=== PATIENT | male | born 1955 | race Caucasian/White ===

== ENCOUNTER 2017-04-08 08:23 | Outpatient (RCR) | payer MEDICARE ==
[2017-04-07 09:33] VITALS: BP 140/96
[2017-04-07 10:09] LABS: PLATELET COUNT, AUTOMATED 48 K/uL (150-450)
[~2017-04-08 08:23] MED LIST: CYAN1TAB68 PO; DIA5 PO; LORA-1455 PO
[2017-04-08 08:29] VITALS: BP 132/85
--- NOTE | 2017-04-08 17:39 | ONCOLOGY FOLLOW UP NOTE ---
EVENT DATE: April 08, 2017 DIAGNOSES 1. 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 2. Idiopathic thrombocytopenic purpura. 3. Crohn disease. CHIEF COMPLAINT The patient is here today for followup of his squamous cell carcinoma of the oropharynx and thrombocytopenia. ONCOLOGY HISTORY The patient is a 61-year-old male, presentation lesion of the left tonsil with extension into the base of the tongue and the introitus of the piriform sinus. PROCEDURE Biopsy of the mass was done, and it came back positive for squamous cell carcinoma, invasive, grade 3/4, with high-risk HBV positivity. STAGING WORK UP 1. CT scan of the head and neck done on 07/18/2012 showed a mass arising from the left tonsillar region just under 4 cm, extending anteriorly in the base of the tongue towards the floor of the mouth. There were no enlarged lymph nodes on the study. 2. PET CT scan done on 07/22/2012 showed increased uptake in the oral cavity on the left side with a mass of 3.3 x 3.3 cm with SUV of 14.91. TREATMENT Patient received chemoradiation. He received a full dose of cisplatinum in combination with radiation therapy. He received 2 cycles of full-dose cisplatinum between 08/23/2012 through 09/27/2012. Patient achieved a complete remission by a PET scan done in 01/2013. HISTORY OF PRESENT ILLNESS Patient is here today for followup of his squamous cell carcinoma of the oropharynx and thrombocytopenia. He is doing fine currently and he is totally asymptomatic and feeling very well himself. He denies any bleeding or easy bruising. PAST MEDICAL HISTORY 1. Oropharyngeal cancer involving the left tonsil and the base of the tongue status post chemoradiation in remission. 2. ITP. 3. Crohn disease. PAST SURGICAL HISTORY 1. Colon surgery for diverticulitis. 2. Upper GI endoscopy on 07/21/2012. 3. Port placement on 08/22/2012. SOCIAL HISTORY Patient quit smoking about 2 years ago. He quit using smokeless tobacco. He drinks alcohol, but denies any abuse of illicit drugs. FAMILY HISTORY Cancer in his father and mother, diabetes in his father, heart disease in the father, hyperlipidemia in the father, hypertension in the brother, father and mother. CURRENT MEDICATIONS None. ALLERGIES No known drug allergies. REVIEW OF SYSTEMS CONSTITUTIONAL: No appetite or weight change. No fever, chills or sweating. No recent infection. HEENT: Ears: No tinnitus or hearing problem. Nose: No nasal discharge or epistaxis. Throat: No sore throat or mouth ulcers. Eyes: No diplopia or visual changes. RESPIRATORY: No shortness of breath. No cough, expectoration or hemoptysis. CARDIOVASCULAR: No chest pain, orthopnea, or paroxysmal nocturnal dyspnea (PND) . No edema. No palpitations. GASTROINTESTINAL: No nausea or vomiting. No diarrhea or constipation. No change in bowel movements. No heartburn or swallowing difficulties. No abdominal pain. No jaundice. No hematemesis, melena or rectal bleeding. GENITOURINARY: Patient has rectal bleeding recently and is scheduled for colonoscopy next week. MUSCULOSKELETAL: No pain in the muscles, joints or bones. NEUROLOGICAL: He has numbness in the fingertips. HEMATOLOGIC/LYMPHATIC: He bruises easily. SKIN: No skin rash or lumps. PSYCHIATRIC: No anxiety or depression. PHYSICAL EXAMINATION GENERAL: Looks stable. Well-developed, well-nourished, and in no acute distress. VITAL SIGNS: Blood pressure 132/85, pulse 85 per minute, respirations 16 per minute, temperature 97.3, pulse ox 97% on room air. HEENT: Head: Atraumatic. No sinus tenderness to palpation. Eyes: No icterus or conjunctivitis. Mouth and throat: No oral thrush or mucositis. NECK: Supple. No cervical or supraclavicular lymphadenopathy. LUNGS: Clear to auscultation and percussion bilaterally. HEART: Regular rate and rhythm. No gallops, murmurs, clicks or rubs. ABDOMEN: Soft and lax. No tenderness. No hepatosplenomegaly. No masses. EXTREMITIES: No cyanosis, clubbing or edema. LYMPHATICS: No peripheral lymphadenopathy. NEUROLOGICAL: Conscious, alert and oriented times three. No focal motor or sensory deficits. PSYCHIATRIC: Mood and affect appear normal. SKIN: No skin rash, bruise or purpuric eruption. DIAGNOSTIC DATA CBC showed a white count of 7.1, hemoglobin 15.4, hematocrit 44.4, platelets 48, 000. Chem panel is totally normal, except AST 41. ASSESSMENT 1. Invasive squamous cell carcinoma grade 3/4 of the left oropharynx (T3) lesion without lymph node involvement status post chemoradiation given between August 22, 2012 through September 27, 2012. During treatment patient received two cycles of cisplatin full dose. Repeat PET scan after chemoradiation in January 2013 revealed achievement of complete remission. Patient currently in complete remission. I am planning to continue followup. I will see him again in four months with CBC and chem panel. Patient was advised to see his ENT surgeon, and he asked for referral to Dr. Vargas here in [place], and we will proceed with that. 2. Thrombocytopenia due to ITP. Current platelet count is 48,000. Patient denies any bleeding or easy bruising. We will continue to monitor. Patient was advised to avoid trauma and to avoid aspirin or nonsteroidal antiinflammatory drugs. He was advised also to report any bleeding. 3. Crohn's disease. Patient is followed by his refrigerator tester. PLAN 1. Continue followup. 2. Referral to Dr. Vargas. 3. Patient to return in four months with CBC, chem panel. 3. Patient is to contact us for any new concerns or complaints. FADUMO
== END 2017-05-12 14:29 | disposition home or self-care (01) ==
LOC: ONC 08:23
PROVIDERS: ATTEND Internal Medicine Hematology
DX: Z85.818 Personal history of malignant neoplasm of other sites of lip, oral cavity, and pharynx (principal); Z92.3 Personal history of irradiation; Z92.21 Personal history of antineoplastic chemotherapy; D69.6 Thrombocytopenia, unspecified; K50.90 Crohn's disease, unspecified, without complications; Z87.891 Personal history of nicotine dependence
CPT/HCPCS: 36415; 85025; G0463; 82040; 82247; 82310; 82374; 82435; 82565; 82947; 84075; 84132; 84155; 84295; 84450; 84460; 84520; 99212

== ENCOUNTER 2017-08-06 08:30 | Outpatient (RCR) | payer MEDICARE ==
[2017-08-05 08:42] LABS: PLATELET COUNT, AUTOMATED 56 K/uL (150-450)
[2017-08-06 08:41] VITALS: BP 123/83
--- NOTE | 2017-08-06 13:10 | Oncology Note ---
EVALUATION~DATE~& TIME: 08/06/17 at 08:48 PRIMARY CARE PHYSICIAN: None LAST SEEN BY DR. Fernandez 03/2017 ACCOMPANIED BY: Self Chief complaint: Surveillance of his squamous cell carcinoma of the oropharynx and thrombocytopenia. DIAGNOSIS : Squamous cell carcinoma of the oropharynx and ITP. Oncology History 2012 T3 SCC of left tonsil [place] [address] Santiago. Patient received chemoradiation. He received a full dose of cisplatinum in combination with radiation therapy. 08/23/2012 through 09/27/2012. He received 2 cycles of full-dose cisplatinum between 01/2013. His repeat PET CT scan after chemoradiation done in 01/2013 showed complete remission 10/2013 Patient has been treated with IVIG in the past, last dose was approximately in August 2013. Options like IVIG, splenectomy, or Nplate were discussed with the patient By Dr. Fernandez in the past. 05/12/17 flexible laryngoscopy by HARRY CARPIO JR, MD>: right nasal cavity anesthetized with afrin and lidocaine. right nasal cavity, nasopharynx, oropharynx, hypopharynx, larynx clear. Treatment Patient received chemoradiation. He received 2 cycles of full dose of cisplatinum in combination with radiation therapy. Patient has been treated with IVIG in the past for ITP HPI Mr. Chris Durham is is a 62-year-old male, who has T3 Squamous cell carcinoma of the oropharynx (dx in 2012) and ITP. for which He received a full dose of cisplatinum in combination with radiation therapy. patient PET since 2012 show complete remission. SCC oropharynx presented as a lesion of the left tonsil with extension into the base of the tongue and the introitus of the piriform sinus. Patient is here today for surveillance follow up. e reports being in his usual state of health. besides a bruise that he had 2 months ago, but it dissolved on its own, he denies any bruising, bleeding. No change in bowel and bladder pattern.Denies cardiac related chest pain, no abdominal pain, no SOB. 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 And keeps active by camping frequently, and he exercises 3-4 times per week. Patient has chronic ITP, and elevated LFTs. he informs me that he has been drinking at least half a dozen of vodka and cranberry juice last Wednesday. He reports no flare ups on Crohn disease. Living conditions: Patient lives by himself , but he informs me that he has support of family friends and a good relationship with his four children. Diagnostic tests & Reports Reviewed on [facility] PAST MEDICAL/SURGICAL HISTORY 1. Oropharyngeal cancer involving the left tonsil and the base of the tongue status post chemoradiation in remission. 2. ITP. 3. Crohn disease. PAST SURGICAL HISTORY 1. Colon surgery for diverticulitis. 2. Upper GI endoscopy on 07/21/2012. 3. Port placement on 08/22/2012. FAMILY~HISTORY: Cancer in his father and mother, diabetes in his father, heart disease in the father, hyperlipidemia in the father, hypertension in the brother, father and mother. Psychosocial History Patient quit smoking about 2 years ago. He quit using smokeless tobacco. He drinks alcohol, but denies any abuse of illicit drugs. Reported Medications Tylenol for aches and sores OTC PRN SOCIAL /OCCUPATION HISTORY: he used to work as a salesman PREVENTIVE: MEDICATIONS: None ALLERGIES: NKDA REVIEW OF SYSTEMS CONSTITUTION: denies fevers, sweats, change in appetite, energy, or weight EYES: No blurred vision, no double vision ENT: no mouth soreness, trouble swallowing, neck masses RESPIRATORY: Denies pleuritic pain, no dyspnea, wheezing, coughing, or hemoptysis CARDIOVASCULAR: Denies cardiac type chest pain, palpitations, or paroxysmal nocturnal dyspnea (PND), nor leg edema GI: denies trouble swallowing, indigestion, abdominal pain, diarrhea, constipation, : No blood in the urine, no urinary urgency/frequency, no dysuria, no MUSCULOSKELETAL: no joint pain, no muscle pain, no limited ROM, no back pain NEURO: denies headaches, dizziness, neuropathy, focal weakness SKIN: denies bruising, rashes, changing or suspicious lesions, HEMATOLOGY: denies spontaneous bleeding, denies non-palpable nodes, +He bruises easily PSYCH: denies mood changes, depression, anxiety PHYSICAL EXAM Vital Signs Temperature: 97.2 Pulse: 95 BP Systolic: 123 BP Diastolic: 83 Respiratory Rate: 16 O2 SAT: 95% RA O2 Delivery: Height (inches) Weight lb: Weight oz: Weight Kg (Carroll): Pain: 0 PERFORMANCE STATUS: ECOG O- fully active, able to carry on all pre-disease performance w/o restriction GENERAL: pleasant conversant, in no apparent distress ORAL: mucosa moist without lesions, pharynx not injected EYES: no icterus, no pale conjunctivae, EOMI, PERRLA NECK: supple, no masses, no palpable lymph nodes LUNGS: clear to auscultation bilaterally, breathing, non-labored CVS: regular rate, rhythm, nl s1, s2, no murmurs ABD: normal bowel sounds, soft non tender, non-distended, no hepatomegaly, no splenomegaly, no masses EXTREMITIES: no edema, no cyanosis MUSCULOSKELETAL: grossly normal gait, range of motion stable NEURO: alert, appropriate, motor grossly normal, sensory grossly non focal, and cranial nerves grossly intact NODES: no cervical, supraclavicular, axillary, inguinal adenopathy SKIN: no ecchymosis, petechiae, no open wounds, no itchiness, no bruises or skin rashes PSYCH: normal mood and affect, good judgment and insight. Assessment & Plan Mr. Chris aguilar is a 62-year-old male, who has T3 Squamous cell carcinoma of the oropharynx (dx in 2012) and ITP. for which He received a full dose of cisplatinum in combination with radiation therapy. patient PET since 2012 show complete remission. DIAGNOSTIC DATA 08/06/17 CBC showed a white count of 6.0, hemoglobin 16.7, hematocrit 47.5, platelets 56, 000. Chem panel is totally normal, except AST 215; ALT 184. ASSESSMENT 1. Invasive squamous cell carcinoma grade 3/4 of the left oropharynx (T3) lesion without lymph node involvement status post chemoradiation given between August 22, 2012 through September 27, 2012. During treatment patient received two cycles of cisplatin full dose. Repeat PET scan after chemoradiation in January 2013 revealed achievement of complete remission. Patient currently in complete remission. I am planning to continue followup. I will see him again in four months with CBC and chem panel. Patient was advised to see his ENT surgeon, and he asked for referral to Dr. Carpio here in [place], and we will proceed with that. 2. Thrombocytopenia due to ITP. Bone marrow biopsy did not show any significant pathology or increased megakaryocytes, but idiopathic thrombocytopenic purpura is favored. Current platelet count is 56,000. Patient denies any bleeding. We will continue to monitor. Patient was advised to avoid trauma and to avoid aspirin , nonsteroidal antiinflammatory, alcohol. 3. ETOH/drug induced liver injury AST 215; ALT 184. patient educated and rationale provided on the effects of ETOH , he was encouraged to refrain from alcohol ingestion. He agrees with the plan. 4. Crohn's disease. Well controlled Patient is followed by his offal separator. PLAN - Check EBV titer trending, thyroid function today. Will notify patient if any pertinent findings. 1. Continue close monitoring of LFTs number. 2. Patient to f/u with MD/RAYSHAWN after visit with ENT Dr. Carpio. per patient his ENT apt is due in 11/05/17 3. Patient to return in three months with CBC, chem panel. 4.Patient instructed to call Clinic to report any bleeding Immediately. 5. Patient is to contact us for any new concerns or complaints. TIME SPENT: 25 minutes >20 minutes includes but not limited to discussion, counselling and co-ordination~ of care. Discussion with other health care providers, record review, review of lab work, diagnostic tests. Plan discussed extensively with patient. All the questions answered today. Thank you for the opportunity to be involved in the care of Mr. Perez Billing Level: Return visit 4 ALEXIS JOHNSON, ONC Aug 06, 2017 09:06
== END 2017-08-09 13:53 | disposition home or self-care (01) ==
LOC: ONC 08:30
PROVIDERS: ATTEND Internal Medicine Hematology
DX: Z85.818 Personal history of malignant neoplasm of other sites of lip, oral cavity, and pharynx (principal); Z92.3 Personal history of irradiation; Z92.21 Personal history of antineoplastic chemotherapy; D69.6 Thrombocytopenia, unspecified; K50.90 Crohn's disease, unspecified, without complications; Z87.891 Personal history of nicotine dependence
CPT/HCPCS: 36415; 82040; 82247; 82310; 82374; 82435; 82565; 82947; 84075; 84132; 84155; 84295; 84443; 84450; 84460; 84520; 85025; 86663; 86664; 86665

== ENCOUNTER → 2017-11-24 | Outpatient (CLI) | payer MEDICARE ==
--- NOTE | 2017-11-24 10:57 | EKG ---
FACILITY: [facility] - [place] PATIENT NAME: DANILO CHOW : [id number] MR: [id number] V: [id number] EXAM DATE: ORDERING PHYSICIAN: DELILAH FAJARDO TECHNOLOGIST: JUVENTINO Test Reason : JAW NUMBNESS Blood Pressure : / mmHG Vent. Rate : 085 BPM Atrial Rate : 085 BPM P-R Int : 176 ms QRS Dur : 090 ms QT Int : 384 ms P-R-T Axes : 073 075 073 degrees QTc Int : 456 ms Normal sinus rhythm Normal ECG No previous ECGs available Referred By: TANA Confirmed By:
== END ==
LOC: LAB 09:15 → RESP 09:15
PROVIDERS: ATTEND Internal Medicine
DX: Z02.9 Encounter for administrative examinations, unspecified (principal)

== ENCOUNTER 2017-12-02 15:17 | Outpatient (RCR) | payer MEDICARE ==
[2017-12-01 13:17] VITALS: BP 122/89
[2017-12-01 13:30] LABS: PLATELET COUNT, AUTOMATED 73 K/uL (150-450)
[2017-12-02 15:28] VITALS: BP 154/77
--- NOTE | 2017-12-03 10:36 | [facility] ONCOLOGY NOTE ---
EVENT DATE: December 02, 2017 DIAGNOSES 1. 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 2. Idiopathic thrombocytopenic purpura. 3. Crohn disease. CHIEF COMPLAINT The patient is here today for followup of his squamous cell carcinoma of the oropharynx and thrombocytopenia. ONCOLOGY HISTORY The patient is a 62-year-old male, presentation lesion of the left tonsil with extension into the base of the tongue and the introitus of the piriform sinus. PROCEDURE Biopsy of the mass was done, and it came back positive for squamous cell carcinoma, invasive, grade 3/4, with high-risk HBV positivity. STAGING WORK UP 1. CT scan of the head and neck done on 07/18/2012 showed a mass arising from the left tonsillar region just under 4 cm, extending anteriorly in the base of the tongue towards the floor of the mouth. There were no enlarged lymph nodes on the study. 2. PET CT scan done on 07/22/2012 showed increased uptake in the oral cavity on the left side with a mass of 3.3 x 3.3 cm with SUV of 14.91. TREATMENT Patient received chemoradiation. He received a full dose of cisplatinum in combination with radiation therapy. He received 2 cycles of full-dose cisplatinum between 08/23/2012 through 09/27/2012. Patient achieved a complete remission by a PET scan done in 01/2013. HISTORY OF PRESENT ILLNESS Patient is here today for followup of his squamous cell carcinoma of the oropharynx and thrombocytopenia. He is doing fine currently. He has been seen by Dr. Kwadwo Vargas, the ENT doctor, and his exam was without any abnormality. He has some tingling and numbness in his fingers but other than that he is doing very well. PAST MEDICAL HISTORY 1. Oropharyngeal cancer involving the left tonsil and the base of the tongue status post chemoradiation in remission. 2. ITP. 3. Crohn disease. PAST SURGICAL HISTORY 1. Colon surgery for diverticulitis. 2. Upper GI endoscopy on 07/21/2012. 3. Port placement on 08/22/2012. SOCIAL HISTORY Patient quit smoking about 2 years ago. He quit using smokeless tobacco. He drinks alcohol, but denies any abuse of illicit drugs. FAMILY HISTORY Cancer in his father and mother, diabetes in his father, heart disease in the father, hyperlipidemia in the father, hypertension in the brother, father and mother. CURRENT MEDICATIONS None. ALLERGIES No known drug allergies. REVIEW OF SYSTEMS CONSTITUTIONAL: No appetite or weight change. No fever, chills or sweating. No recent infection. HEENT: Ears: No tinnitus or hearing problem. Nose: No nasal discharge or epistaxis. Throat: No sore throat or mouth ulcers. Eyes: No diplopia or visual changes. RESPIRATORY: No shortness of breath. No cough, expectoration or hemoptysis. CARDIOVASCULAR: No chest pain, orthopnea, or paroxysmal nocturnal dyspnea (PND). No edema. No palpitations. GASTROINTESTINAL: No nausea or vomiting. No diarrhea or constipation. No change in bowel movements. No heartburn or swallowing difficulties. No abdominal pain. No jaundice. No hematemesis, melena or rectal bleeding. GENITOURINARY: Patient has rectal bleeding recently and is scheduled for colonoscopy next week. MUSCULOSKELETAL: No pain in the muscles, joints or bones. NEUROLOGICAL: He has tingling and numbness in his fingers. HEMATOLOGIC/LYMPHATIC: He bruises easily. SKIN: No skin rash or lumps. PSYCHIATRIC: No anxiety or depression. PHYSICAL EXAMINATION GENERAL: Looks stable. Well-developed, well-nourished, and in no acute distress. VITAL SIGNS: Blood pressure 152/77, pulse 102 per minute, respirations 16 per minute, temperature 97.6, pulse ox 94% on room air. HEENT: Head: Atraumatic. No sinus tenderness to palpation. Eyes: No icterus or conjunctivitis. Mouth and throat: No oral thrush or mucositis. NECK: Supple. No cervical or supraclavicular lymphadenopathy. LUNGS: Clear to auscultation and percussion bilaterally. HEART: Regular rate and rhythm. No gallops, murmurs, clicks or rubs. ABDOMEN: Soft and lax. No tenderness. No hepatosplenomegaly. No masses. EXTREMITIES: No cyanosis, clubbing or edema. LYMPHATICS: No peripheral lymphadenopathy. NEUROLOGICAL: Conscious, alert and oriented times three. No focal motor or sensory deficits. PSYCHIATRIC: Mood and affect appear normal. SKIN: No skin rash, bruise or purpuric eruption. DIAGNOSTIC DATA CBC showed a white count of 7.1, hemoglobin 16.4, hematocrit 47.7, platelets 73,000. Chem panel is totally normal. ASSESSMENT 1. Invasive squamous cell carcinoma grade 3/4 of the left oropharynx (T3) lesion without lymph node involvement status post chemoradiation given between August 22, 2012 through September 27, 2012. During treatment, patient received two cycles of cisplatin full dose. Repeat PET scan after chemoradiation in January 2013 revealed achievement of complete remission. Patient currently in complete remission. He has been seen by Dr. Kwadwo Vargas, our ENT here in [place], and his exam was normal. I am planning to see him again in six months with CBC and chem panel at that time. 2. Thrombocytopenia due to ITP. Current platelet count is 73,000, which is up from 48,000 on his last visit. Patient denies any bleeding or easy bruising. I am planning to continue followup. I advised the patient to avoid trauma, aspirin and nonsteroidal antiinflammatory drugs and to report any excessive bruising or bleeding. 3. Crohn's disease. Patient is followed by his software licensing executive. PLAN 1. Continue followup. 2. Patient to return in six months with CBC, chem panel. 3. Patient is to contact us for any new concerns or complaints. MTDD
== END 2017-12-15 08:39 | disposition home or self-care (01) ==
LOC: ONC 15:17
PROVIDERS: ATTEND Internal Medicine Hematology
DX: Z85.818 Personal history of malignant neoplasm of other sites of lip, oral cavity, and pharynx (principal); D69.6 Thrombocytopenia, unspecified; K50.90 Crohn's disease, unspecified, without complications
CPT/HCPCS: 36415; 85025; G0463; 82040; 82247; 82310; 82374; 82435; 82565; 82947; 84075; 84132; 84155; 84295; 84450; 84460; 84520; 99212

== ENCOUNTER → 2017-12-06 | Outpatient (CLI) | payer MEDICARE ==
[2017-12-06 08:26] LABS: PLATELET COUNT, AUTOMATED 66 K/uL (150-450)
[2017-12-06 08:47] LABS: LDL CHOLESTEROL 94 mg/dl
== END ==
LOC: LAB 07:58
PROVIDERS: ATTEND Internal Medicine
DX: D69.3 Immune thrombocytopenic purpura (principal); R94.5 Abnormal results of liver function studies; R68.84 Jaw pain; C10.9 Malignant neoplasm of oropharynx, unspecified
CPT/HCPCS: 36415; 81001; 84443; 85025; G0103; 82040; 82247; 82310; 82374; 82435; 82465; 82565; 82947; 83718; 84075; 84132; 84153; 84155; 84295; 84450; 84460; 84478; 84520

== ENCOUNTER → 2017-12-15 | Outpatient (CLI) | payer MEDICARE ==
--- NOTE | 2017-12-15 16:20 | RADIOLOGY IMAGING REPORT ---
FACILITY: [facility] - [place] PATIENT NAME: Herminio Perez : 1955 MR: [id number] V: [id number] EXAM DATE: ORDERING PHYSICIAN: DELILAH FAJARDO TECHNOLOGIST: Location: [facility] [place] Patient: Herminio Perez : 1955 Visit/Account:[id number] Date of Sevice: 12/15/2017 EXAMINATION: Single Isotope SPECT Imaging with Exercise and Gated SPECT Imaging DATE OF EXAMINATION: December 15, 2017 DATE OF INTERPRETATION: December 15, 2017 REQUESTING PHYSICIAN: DELILAH FAJARDO INDICATION: The patient is a 62-year-old male evaluated for CAD. PROCEDURE: After informed consent the patient received an intravenous injection of 11.9 mCi of Tc-9 9m sestamibi followed at the appropriate time interval by rest imaging. The patient then exercised a ccording to the standard Steve protocol for 9 minutes achieving 10 METS. Resting heart rate was 98 b pm with a peak heart rate of 155 bpm which is 98 % of maximal predicted heart rate for age. Blood p ressure at rest was 116 / 84; blood pressure during exercise was 181 / 93. There was no documented c hest pain during exercise. Exercise was discontinued because of completing the protocol. Baseline E KG demonstrates normal sinus rhythm. There were no diagnostic EKG changes of ischemia at peak exerci se. Approximately one minute and 30 seconds prior to the termination of exercise, the patient receiv ed an intravenous injection of 30 mCi of Tc-99m sestamibi followed by stress imaging. RAW DATA: Examination of the summed raw data revealed a fair quality study. MYOCARDIAL PERFUSION: The tomographic images demonstrate a fairly large inferior defect at rest that seems to improve some with stress but is essentially abolished with prone imaging. This is likely ar tifact. No significant ischemia or infarction is suspected.. GATED IMAGES: The gated images demonstrate an ejection fraction of 67% without wall motion abnormali ties. IMPRESSION: 1. Baseline EKG shows normal sinus rhythm and there are no diagnostic changes with stress. Although there is a fairly large inferior defect with rest and stress it abolishes with prone imaging and ther efore is likely an artifact. No significant ischemia or infarction is suspected. 2. Probably normal myocardial perfusion scan. 3. Normal LV systolic function; LVEF 67%. 4. Based on the results of this exam, the patient appears to be at low risk for future cardiovascular events. Report Dictated By: Salvatore Curry MD at 12/15/2017 4:14 PM Report E-Signed By: Salvatore Curry MD at 12/15/2017 4:17 PM WSN:[id number]
--- NOTE | 2017-12-16 09:48 | RT STRESS TEST REPORT ---
FACILITY: [facility] - [place] PATIENT NAME: DANILO CHOW : [id number] MR: [id number] V: [id number] EXAM DATE: ORDERING PHYSICIAN: DELILAH FAJARDO TECHNOLOGIST: Luis Acquisition Time: 2017-12-15 09:34:10 Total Exercise Time: 00:09:00 Test Indications: JAW PAIN Medications: NONE Protocol: CLARENCE 2 Max HR: 155 BPM 98% of Pred: 157 BPM Max BP: 181/093 mmHG Max Work Load: 10.4 METS frequent PVCs noted during recovery which resolved spontaneously Impression Normal EKG part of nuclear medicine stress test Nuclear medicine report to follow Confirmed by DELILAH FAJARDO ([id number]) on 12/16/2017 9:48:14 AM Referred By: DELILAH FAJARDO Overread By: DELILAH FAJARDO
== END ==
LOC: NUC 06:51
PROVIDERS: ATTEND Internal Medicine
DX: R68.84 Jaw pain (principal)
CPT/HCPCS: 78452; 93017; A9500

== ENCOUNTER → 2018-01-24 | Outpatient (CLI) | payer MEDICARE ==
[~2018-01-24] MED LIST changes: +TRAZ50TA34 PO
--- NOTE | 2018-01-24 11:20 | EKG ---
FACILITY: [facility] - [place] PATIENT NAME: DANILO CHOW : [id number] MR: [id number] V: [id number] EXAM DATE: ORDERING PHYSICIAN: DELILAH FAJARDO TECHNOLOGIST: CARLENE Decker Reason : TACHY CARDIA Blood Pressure : / mmHG Vent. Rate : 111 BPM Atrial Rate : 111 BPM P-R Int : 178 ms QRS Dur : 080 ms QT Int : 340 ms P-R-T Axes : 075 064 064 degrees QTc Int : 462 ms Sinus tachycardia Otherwise normal ECG When compared with ECG of 24-NOV-2017 08:34, No significant change was found Confirmed by DELILAH FAJARDO ([id number]) on 01/24/2018 4:48:32 PM Referred By: KAYLEE Confirmed By:DELILAH FAJARDO
== END ==
LOC: RESP 10:54
PROVIDERS: ATTEND Internal Medicine
DX: Z02.9 Encounter for administrative examinations, unspecified (principal)

== ENCOUNTER 2018-04-27 08:07 | Outpatient (RCR) | payer MEDICARE ==
[2018-04-27 08:22] LABS: PLATELET COUNT, AUTOMATED 155 K/uL (150-450)
[2018-04-27 08:28] VITALS: BP 120/85
--- NOTE | 2018-04-27 10:27 | ONCOLOGY FOLLOW UP NOTE ---
EVENT DATE: April 27, 2018 DIAGNOSES 1. 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 2. Immune thrombocytopenic purpura. 3. Crohn's disease. CHIEF COMPLAINT Patient is here today for ongoing followup for his ITP as well as his squamous cell carcinoma of the left oropharynx. ONCOLOGY HISTORY Patient is a 62-year-old gentleman who initially presented with a lesion in the left tonsil with extension into the base of the tongue and the introitus of the piriform sinus. He received chemoradiation with full-dose cisplatin. He received two cycles of full-dose cisplatin between August 23, 2012, and September 27, 2012. He had a PET scan in January 2013, which revealed a complete response. HISTORY OF PRESENT ILLNESS Patient is here today for ongoing followup regarding squamous cell carcinoma of the left oropharynx and his ITP. He is now every six month followup with us. He reports no significant changes in his health status since his last visit with us. He denies any bleeding or excessive bruising. He denies any new oral lesions. He tells me that he is eating and drinking well. He was seen by Dr. Kwadwo Vargas, ENT physician here in [facility], and has not had any abnormalities. He has been discharged from his care. He reports good energy and tells me that he is exercising approximately three to four times per week and goes to the gym and performs cardiovascular and weightbearing exercises. PAST MEDICAL HISTORY 1. Oropharyngeal cancer involving the left tonsil and the base of the tongue status post chemoradiation in remission. 2. ITP. 3. Crohn disease. PAST SURGICAL HISTORY 1. Colon surgery for diverticulitis. 2. Upper GI endoscopy on 07/21/2012. 3. Port placement on 08/22/2012. SOCIAL HISTORY Patient quit smoking about 2 years ago. He quit using smokeless tobacco. He drinks alcohol, but denies any abuse of illicit drugs. FAMILY HISTORY Cancer in his father and mother, diabetes in his father, heart disease in the father, hyperlipidemia in the father, hypertension in the brother, father and mother. CURRENT MEDICATIONS None. ALLERGIES No known drug allergies. REVIEW OF SYSTEMS A 12-point review of systems is performed today and is negative other than what is stated above and immediately following. CONSTITUTIONAL: Patient denies any recent fevers, chills or night sweats. No infections. He denies any appetite or weight changes. HEENT: He denies any vision changes. He denies any new oral ulcerations or lesions. He denies any significant oral pain, dysphagia or odynophagia. He is able to eat and drink well, although states that ever since his surgery and chemoradiation he does need to drink plenty of water with his food. RESPIRATORY: He denies any shortness of breath. No cough or hemoptysis. CARDIOVASCULAR: He denies any chest pain, syncope or presyncope. GASTROINTESTINAL: No abdominal pain, nausea or vomiting. He reports normal bowels and actually tells me he does not have Crohn's disease. In any event, he has not had any rectal bleeding or melena. He reports a good normal appetite. MUSCULOSKELETAL: He denies any focal areas of pain. NEUROLOGICAL: He denies any significant numbness or tingling in his extremities. PSYCHIATRIC: He denies any severe anxiety, severe depression, suicidal or homicidal ideation. DERM: He denies any rash, suspicious lesions or widespread bruising. No free bleeding. PHYSICAL EXAMINATION VITAL SIGNS: Adrienne not obtained today. T 98.0 F, P 97, R 16, blood pressure 120/85, oxygen saturation 91% on room air. GENERAL: This is a pleasant 62-year old gentleman who appears in good spirits. Appears well-nourished, well-hydrated and is in no acute distress. HEAD: Atraumatic, normocephalic. EYES: Nonicteric sclerae. ENT/MOUTH: No mucositis. No suspicious lesions on examination. NECK: Supple. No lymphadenopathy. No JVD. LUNGS: Clear breath sounds to auscultation bilaterally. Chest expansion is symmetrical. Respiratory effort is normal. CARDIAC: Mildly tachycardic in the mid 90s, regular rhythm. No ectopy. ABDOMEN: Soft, nontender, nondistended. No hepatosplenomegaly. NEUROLOGICAL: Patient is awake, alert and oriented x3. PSYCHIATRIC: Mood and affect are appropriate. EXTREMITIES: No edema. No cyanosis or clubbing. DERM: No rash. No bruising. No petechiae or purpura. LABORATORIES CBC today: WBC 4.8, ANC 2.5, hemoglobin 16.1, hematocrit 47.0%, platelets 155,000. CMP is currently pending. 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 This was a T3 lesion without lymph node involvement. He is status post chemoradiation with two full cycles of full-dose cisplatin given between August 22, 2012, through September 27, 2012. He did have a repeat PET scan post completion of chemoradiation in January 2013, which revealed complete remission. He is now five years out. He is doing well. He was initially evaluated by Dr. Kwadwo Vargas, ENT here in [place], and exam was normal. Patient has not required any followup in quite some time with ENT. Lastly, he does have a history of ITP. His platelet count does fluctuate but at last visit was 73,000. We have simply been monitoring him. He is well-versed on signs and symptoms of when to call our office regarding his platelets. He is aware to avoid trauma, aspirin and nonsteroidal anti-inflammatory drugs. Patient tells me that he is not following with gastroenterology and does not have Crohn's disease, although records do show that he has a history of this. In any event, he is not having any signs consistent with exacerbation and I did recommend that he follow up with his PCP or wool spotter in the future if he were to have any bowel changes. 1. Invasive squamous cell carcinoma, grade 3/4, post chemoradiation with cisplatin: Patient currently in complete remission. He is now five years out. We continue to monitor him. He is aware to notify us for any abnormalities or suspicious oral lesions or any changes. 2. Immune thrombocytopenic purpura: Platelets today are in excellent range at 155,000. We did review bleeding precautions and signs and symptoms of when to call our office. He knows that he needs to report any excessive bruising or bleeding to us. 3. I encouraged the patient to continue with his exercise regimen as he is reporting going to the gym three to four times per week. 4. Health maintenance. I did discuss fluid vaccination as it is still flu season, although patient tells me he did not receive it this year and refused flu vaccine today. 5. I have asked the patient to follow up in clinic in six months with his medical oncologist, Dr. De La Fuente. We will repeat labs with CBC and CMP at that visit. FADUMO
== END 2018-06-08 09:08 | disposition home or self-care (01) ==
LOC: ONC 08:07
PROVIDERS: ATTEND Internal Medicine Hematology
DX: Z85.818 Personal history of malignant neoplasm of other sites of lip, oral cavity, and pharynx (principal); Z92.3 Personal history of irradiation; Z92.21 Personal history of antineoplastic chemotherapy; D69.3 Immune thrombocytopenic purpura; K50.90 Crohn's disease, unspecified, without complications; Z87.891 Personal history of nicotine dependence
CPT/HCPCS: 36415; 85025; G0463; 82040; 82247; 82310; 82374; 82435; 82565; 82947; 84075; 84132; 84155; 84295; 84450; 84460; 84520; 99212